=== PATIENT | female | born 1960 | race Caucasian/White ===

== ENCOUNTER 2018-04-07 11:25 | Outpatient (CLI) | payer BC | END 2018-04-07 11:26 | disposition home or self-care (01) | LOC: BICMAMMO 11:25 | PROVIDERS: ATTEND Internal Medicine | DX: Z12.31 Encounter for screening mammogram for malignant neoplasm of breast (principal) | CPT/HCPCS: 77063; 77067 ==

== ENCOUNTER 2018-11-24 08:56 | Outpatient (CLI) | payer OTHER ==
--- NOTE | 2018-11-24 10:03 | BD ---
DEXA Bone Density History: 68-year-old female for post-menopausal screening. Lumbar Spine: BMD (g/cm2) L1 0.709 T-Score: -2.6 L2 0.782 T-Score: -2.2 L3 0.795 T-Score: -2.6 L4 0.820 T-Score: -2.2 L1-L4 0.780 T-Score: -2.4 Total lumbar density from exam of 06-02-16 recorded at 0.792. Femoral Neck: 0.615 T-Score: -2.1 Total Femur: 0.737 T-Score: -1.7 Total femur density, 06-02-16, recorded at 0.726. Impression: Bone mineral density lumbar spine and femoral neck both indicate osteopenia. 10-year fracture risk: Major osteoporotic fracture: 15% Hip fracture: 1.1% POS: [facility]
== END 2018-11-24 08:57 | disposition home or self-care (01) ==
LOC: BICMAMMO 08:56
PROVIDERS: ATTEND Student in an Organized Health Care Education/Training Program
DX: M85.89 Other specified disorders of bone density and structure, multiple sites (principal)
CPT/HCPCS: 77080

== ENCOUNTER 2021-02-26 14:02 | Outpatient (CLI) | payer OTHER | END 2021-02-26 14:03 | disposition home or self-care (01) | LOC: BICULT 14:02 | PROVIDERS: ATTEND Urology | DX: R33.9 Retention of urine, unspecified (principal) | CPT/HCPCS: 76770 ==

== ENCOUNTER 2023-05-12 10:48 | Outpatient (CLI) | payer OTHER | END 2023-05-12 10:49 | disposition home or self-care (01) | LOC: BICMAMMO 10:48 | PROVIDERS: ATTEND Internal Medicine | DX: Z12.31 Encounter for screening mammogram for malignant neoplasm of breast (principal); Z13.820 Encounter for screening for osteoporosis; M81.0 Age-related osteoporosis without current pathological fracture; M85.852 Other specified disorders of bone density and structure, left thigh; M85.851 Other specified disorders of bone density and structure, right thigh; Z78.0 Asymptomatic menopausal state | CPT/HCPCS: 77063; 77067; 77080 ==

== ENCOUNTER 2023-06-29 09:30 | Emergency (ER) | payer OTHER, SELFPAY | END 2023-06-29 12:01 | disposition home or self-care (01) | LOC: ERS 09:30 | DX: S52.571A Other intraarticular fracture of lower end of right radius, initial encounter for closed fracture (principal); S52.572A Other intraarticular fracture of lower end of left radius, initial encounter for closed fracture; V00.211A Fall from ice-skates, initial encounter; Y93.21 Activity, ice skating | CPT/HCPCS: 29125 ==

== ENCOUNTER 2024-05-15 09:32 | Outpatient (CLI) | payer OTHER | END 2024-05-15 09:33 | disposition home or self-care (01) | LOC: BICMAMMO 09:32 | PROVIDERS: ATTEND Internal Medicine | DX: Z12.31 Encounter for screening mammogram for malignant neoplasm of breast (principal) | CPT/HCPCS: 77063; 77067 ==